=== PATIENT | male | born 1960 | race Caucasian/White ===

== ENCOUNTER 2017-04-13 18:51 | Emergency (ER) | payer BC ==
[~2017-04-13] VITALS: Ht 185.4 cm; Wt 93.9 kg
[2017-04-13] MEDS ORDERED: KEFLEX500 MG PO (20:28)
[2017-04-13 21:38] VITALS: BP 157/99
== END 2017-04-13 21:40 | disposition home or self-care (01) ==
LOC: EME 18:51
DX: S62.667B Nondisplaced fracture of distal phalanx of left little finger, initial encounter for open fracture (principal); W23.0XXA Caught, crushed, jammed, or pinched between moving objects, initial encounter; Z23 Encounter for immunization
CPT/HCPCS: 73140; 99281; 99284